=== PATIENT | female | born 1985 | race Two or more races ===

== ENCOUNTER 2023-03-15 05:44 | Inpatient (IN) | payer OTHER ==
[~2023-03-15] VITALS: Ht 167.6 cm; Wt 81.2 kg
[~2023-03-15 05:44] MED LIST: PRENATABS RX T1 EACH PO; TENCON 50-3251 EACH PO
[2023-03-17] MEDS ORDERED: CONCEPT DHA CA1 EACH (08:07)
== END 2023-03-17 12:50 | disposition home or self-care (01) | DRG 807 ==
LOC: LDR 05:44 → OB/GYN 14:18
PROVIDERS: ADMIT Obstetrics & Gynecology Maternal & Fetal Medicine; ATTEND Obstetrics & Gynecology Maternal & Fetal Medicine
PROC: 10E0XZZ Delivery of Products of Conception, External Approach (ICD-10-PCS; principal; 2023-03-15)
PROC: 0KQM0ZZ Repair Perineum Muscle, Open Approach (ICD-10-PCS; 2023-03-15)
PROC: 4A1HXCZ Monitoring of Products of Conception, Cardiac Rate, External Approach (ICD-10-PCS; 2023-03-15)
DX: O70.1 Second degree perineal laceration during delivery (principal); Z37.0 Single live birth; Z3A.38 38 weeks gestation of pregnancy; Z20.822 Contact with and (suspected) exposure to COVID-19

== ENCOUNTER 2024-02-24 23:28 | Emergency (ER) | payer OTHER ==
[~2024-02-24] VITALS: Ht 167.6 cm; Wt 78.0 kg
[~2024-02-24 23:28] MED LIST changes: +CONCEPT DHA CA1 EACH
[2024-02-25] MEDS ORDERED: FAMOTIDINE/PF 20 MG in 0.9 % SODIUM CHLORIDE 8 ML IV PUSH STA (00:53)
[2024-02-25] MEDS ORDERED: DIPHENOXYLATE HCL/ATROPINE 1 UDTAB TABLET PO ONE (01:00)
[2024-02-25] MEDS ORDERED: METHYLPREDNISOLONE SOD SUCC 125 MG VIAL IV ONE (01:00)
[2024-02-25] MEDS ORDERED: 0.9 % SODIUM CHLORIDE 1,000 ML IV SCH (01:00)
[2024-02-25] MEDS ORDERED: METRONIDAZOLE/SODIUM CHLORIDE 500 MG/100 ML PIGGYBACK IV ONE (01:00)
[2024-02-25] MEDS ORDERED: ONDANSETRON HCL 2 MG/ML VIAL IV ONE (01:00)
[2024-02-25] MEDS ORDERED: KETOROLAC TROMETHAMINE 30 MG VIAL IV ONE (01:00)
[2024-02-25 01:51] LABS: HEMATOCRIT 37.7 % (36.0-45.00); HEMOGLOBIN 12.8 g/dL (12.0-15.00); MEAN CELL VOLUME 88.1 fL (80.00-100.00); PLATELET COUNT 141 K/uL (150-450); RED BLOOD COUNT 4.28 M/uL (4.00-6.00); RED CELL DISTRIBUTION WIDTH 13.1 % (11.5-14.5)
[2024-02-25 02:01] LABS: ALBUMIN 3.2 gm/dL (3.4-5.0); BILIRUBIN TOTAL 0.58 mg/dL (0.3-1.2); CALCIUM 8.4 mg/dL (8.5-10.1); CREATININE SERUM 0.74 mg/dL (0.55-1.02); GFR 88.8; GLOBULINA 3.2 G/DL (2.4-3.5); POTASSIUM 3.35 mEq/L (3.5-5.1); TOTAL PROTEIN 6.4 gm/dL (6.4-8.2)
[2024-02-25 02:51] LABS: URINE APPEARANCE Clear; URINE BILIRRUBIN Negative (NEGATIVE); URINE BLOOD Negative; URINE COLOR Yellow; URINE GLUCOSE Negative (NEGATIVE); URINE LEUKOCYTE Negative; URINE NITRATE Negative; URINE PROTEIN Negative (NEGATIVE)
[2024-02-25 02:55] LABS: URINE EPITHELIAL CELLS 18.2 uL (0.0-38.8); URINE RBC 20.6 uL (0.0-20.8); URINE WBC 7.4 uL (0.0-23.2)
[2024-02-25] MEDS ORDERED: METRONIDAZOLE500 MG PO (03:57)
[2024-02-25] MEDS ORDERED: INTESTINEX680 M1 PO (03:57)
[2024-02-25] MEDS ORDERED: ZOFRAN8 MG PO (03:57)
[2024-02-25] MEDS ORDERED: PEPCID AC20 MG PO (03:57)
== END 2024-02-25 04:08 | disposition home or self-care (01) ==
LOC: ER 23:28
PROVIDERS: General Practice
DX: K52.89 Other specified noninfective gastroenteritis and colitis (principal); R11.2 Nausea with vomiting, unspecified; Z91.013 Allergy to seafood; Z88.6 Allergy status to analgesic agent